=== PATIENT | female | born 1990 | race American Indian/Alaskan Native ===

== ENCOUNTER 2022-04-14 08:16 | Day surgery (SDC) | payer MEDICAID ==
[~2022-04-14 08:16] MED LIST: Acetaminophen 1,000 MG in Premix Bag 1 BAG IV SCH; Bupivacaine 0.25% 30 ML SDV ONE; Dexamethasone 4 MG/ML 5 ML MDV ONE; Dexmedetomidine 200 MCG/2 ML SDV ONE; Esmolol 100 MG/10 ML SDV ONE; Ketamine 500 mg/10 ML MDV ONE; Lactated Ringers 1,000 ML IV SCH; Midazolam 1 MG/ML 2 ML SDV ONE; Octyl 2-Cyanoacrylate 1 Tube ONE; Pregabalin 75 MG Cap PO SCH; Propofol 200 MG/20 ML SDV ONE; Rocuronium 100 MG/10 ML MDV ONE; Water For Injection, Sterile 20 ML ONE; cefOXitin 2 GM in Premix Bag 1 BAG IV SCH; fentaNYL 100 MCG/2 ML SDV ONE
[2022-04-14] MEDS ORDERED: cefOXitin 2 GM in Premix Bag 1 BAG IV SCH (09:00)
[2022-04-14] MEDS ORDERED: Pregabalin 75 MG Cap PO SCH (09:00)
[2022-04-14] MEDS ORDERED: Acetaminophen 1,000 MG in Premix Bag 1 BAG IV SCH (09:00)
[2022-04-14] MEDS ORDERED: Scopolamine 1.5 MG Transdermal Patch TRDERM PRN (09:38)
[2022-04-14] MEDS ORDERED: Scopolamine 1.5 MG Transdermal Patch ONE (09:46)
[2022-04-14] MEDS ORDERED: Ondansetron 4 MG/2 ML SDV IVPUSH PRN (10:04)
[2022-04-14] MEDS ORDERED: fentaNYL 100 MCG/2 ML SDV IVPUSH PRN (10:04)
[2022-04-14] MEDS ORDERED: Albuterol 0.083% 2.5 MG/3 ML Neb Soln NEB PRN (10:04)
[2022-04-14] MEDS ORDERED: HYDROmorphone 1 MG/ML Syringe IVPUSH PRN (10:04)
[2022-04-14] MEDS ORDERED: Naloxone 0.4 MG/ML SDV IVPUSH PRN (10:04)
[2022-04-14] MEDS ORDERED: Metoclopramide 10 MG/2 ML SDV IVPUSH PRN (10:04)
[2022-04-14] MEDS ORDERED: cefOXitin 100 ML ONE (10:44)
[2022-04-14] MEDS ORDERED: Sugammadex Sodium 200 MG/2 ML VIAL ONE (11:33)
[2022-04-14] MEDS ORDERED: Ondansetron 4 MG/2 ML SDV ONE (11:33)
[2022-04-14] MEDS ORDERED: Acetaminophen/HYDROcodone 325-5 MG Tab PO ONE (14:14)
== END 2022-04-14 14:30 | disposition home or self-care (01) ==
LOC: MW.SDS 08:16
PROVIDERS: ATTEND Surgery
DX: K80.10 Calculus of gallbladder with chronic cholecystitis without obstruction (principal); F17.210 Nicotine dependence, cigarettes, uncomplicated; E66.9 Obesity, unspecified; Z88.1 Allergy status to other antibiotic agents; Z79.899 Other long term (current) drug therapy; Z98.890 Other specified postprocedural states; Z68.36 Body mass index [BMI] 36.0-36.9, adult
CPT/HCPCS: 47562; 81025; A9270; J0131; J0694; J1100; J1170; J2250; J2405; J2704; J3490; J7030; J7120; 00790; J3010